=== PATIENT | female | born 1950 | race Caucasian/White ===

== ENCOUNTER → 2020-01-05 | Outpatient (CLI) | payer BC, MEDICARE | END | disposition home or self-care (01) | LOC: LABWHC1 09:32 | PROVIDERS: ATTEND Family Medicine | DX: F32.9 Major depressive disorder, single episode, unspecified (principal); Z79.890 Hormone replacement therapy | CPT/HCPCS: 36415; 82672; 84144; 84403 ==

== ENCOUNTER → 2020-10-25 | Outpatient (CLI) | payer MEDICARE | END | disposition home or self-care (01) | LOC: LABWHC1 11:42 | PROVIDERS: ATTEND Internal Medicine Endocrinology, Diabetes & Metabolism | DX: H05.20 Unspecified exophthalmos (principal) | CPT/HCPCS: 36415; 84445; 86376 ==

== ENCOUNTER → 2021-01-01 | Outpatient (CLI) | payer MEDICARE ==
--- NOTE | 2021-01-01 15:57 | XR ---
EXAMINATION TYPE: XR hand complete bilateral DATE OF EXAM: 01/01/2021 CLINICAL HISTORY: Bilateral pain TECHNIQUE: Frontal, lateral and oblique images of the bilateral hands are obtained. COMPARISON: None. FINDINGS: There is no acute fracture/dislocation evident in either hand. Mild narrowing throughout t he PIP and DIP joints of the phalanges without significant spurring. The overlying soft tissue appea rs unremarkable bilaterally. IMPRESSION: As above.
== END | disposition home or self-care (01) ==
LOC: RADXRMAIN 15:29
PROVIDERS: ATTEND Physician Assistant
DX: M79.643 Pain in unspecified hand (principal); M25.60 Stiffness of unspecified joint, not elsewhere classified

== ENCOUNTER → 2023-07-22 | Outpatient (CLI) | payer MEDICARE | END | disposition home or self-care (01) | LOC: LABPAT 13:58 | PROVIDERS: ATTEND Otolaryngology | DX: I10 Essential (primary) hypertension (principal) | CPT/HCPCS: 93005 ==